=== PATIENT | male | born 1975 | race Caucasian/White ===

== ENCOUNTER 2021-07-29 14:26 | Emergency (ER) | payer MEDICARE ==
--- NOTE | 2021-07-29 15:25 | Emergency Department Report ---
ED Psych HPI - General Chief Complaint: Medical Clearance Stated Complaint: MED CLEARANCE Time Seen by Provider: 07/29/21 15:01 Source: patient, EMS Mode of arrival: Stretcher - History of Present Illness Initial Comments: 46-year-old male with a past medical history of alcohol abuse, hypothyroidism, hyponatremia, bipolar disorder, and seizure disorder presents from [facility] for medical clearance as per records provided by [facility] patient was admitted to another hospital July 19 until today July 29 when he was discharged at 2:45 AM. As per discharge summary patient was medically cleared for transfer to [facility], currently on a 1013, and was stable at time of discharge. Patient received a CT head, EEG, MRI, and x-rays during hospitalization. He was discharged on multiple medications. There is rash noted to be concerning for scabies noted on the d/c summary. We did not receive a call from [facility] prior to patient transport. I am informed by triage nurse that patient was sent for "medical clearance". I requested for Shivani our mental health jigman to call [facility] for clarification as to why patient was sent to the ER today Patient said he was admitted to [facility] in [place] for alcohol withdrawal seizures and head injury. He denies hallucinations, SI, HI, or tremors. He does have a non puritic rash to his b/l hands, right wrist, b/l thighs extending upwards to his privates. He was told by the other hospital it might be scabies. Pt states he was provided triple abx ointment to put on his skin. 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 Shivani spoke to [facility]. Pt was declined for admission due to possibility of scabies and the fact he requires a non shared room. EMS was suppose to take patient back to [facility] in [place] and pt was accepted back by the charge nurse. Ems was not suppose to transport pt here to this hospital. - Related Data Allergies Allergy/AdvReac Type Severity Reaction Status Date / Time lorazepam [From Ativan] Allergy Unknown Verified 07/29/21 14:39 ED Review of Systems ROS: Stated complaint: MED CLEARANCE Other details as noted in HPI Comment: All other systems reviewed and negative ED Physical Exam - General Limitations: No Limitations - Other Other exam information: General: No acute distress Head: Right forehead with laceration repair Eyes: normal appearance ENT: Moist mucous membranes Neck: Normal appearance, no midline tenderness Chest: Clear to auscultation bilaterally CV: Regular rate and rhythm Abdomen: Soft, normal bowel sounds, nontender, nondistended, no rebound or guarding Back: Normal inspection Extremity: Normal inspection, full range of motion Neuro: Alert O x 3, no facial asymmetry, speech clear, no gross motor sensory deficit Psych: Appropriate behavior Skin: Patient has erythematous papular rash to upper legs. There are some areas of confluent redness and scaling particularly of the right wrist. Patient insists lesions are nonpruritic ED Course Vital Signs 07/29/21 14:39 Pulse Rate 67 Respiratory 16 Rate Blood Pressure 115/68 [Left] O2 Sat by Pulse 97 Oximetry ED Medical Decision Making - Medical Decision Making 46-year-old male presents to the hospital after being dropped off here by EMS who were suppose to take patient back to the hospital at [facility] in [place]. Patient does not complain of any physical complaints denies suicidal ideation, homicidal ideation, psychosis, and does not have any signs or symptoms of alcohol withdrawal tremors. Patient is noted to have a rash which was previously diagnosed as possible scabies however, rash is not pruritic and has been there for greater than 3 months to the lower extremities. Shivani clarified patient's disposition and intent with [facility] who will send the EMS unit to pick patient up and take him back to [facility] in [place] as previously planned. Critical Care Time: No Critical care attestation.: If time is entered above; I have spent that time in minutes in the direct care of this critically ill patient, excluding procedure time. ED Disposition Clinical Impression: Papular rash, History of alcohol abuse, History of seizures, Encounter for fareed brower awaiting admission to psychiatric care setting Disposition: [address] [place] [address] Is pt being admited?: No Does the pt Need Aspirin: No Condition: Stable Instructions: Alcohol Abuse and Nutrition Time of Disposition: 15:45 (transfer back to [facility] pending)
[2021-07-29 17:54] VITALS: BP 112/63
== END 2021-07-30 07:00 ==
LOC: ED 14:26
DX: R21 Rash and other nonspecific skin eruption (principal); F10.11 Alcohol abuse, in remission; Z82.0 Family history of epilepsy and other diseases of the nervous system; Z75.1 Person awaiting admission to adequate facility elsewhere; Z88.8 Allergy status to other drugs, medicaments and biological substances
CPT/HCPCS: 99284